=== PATIENT | female | born 1950 | race Caucasian/White ===

== ENCOUNTER 2017-09-20 15:53 | Emergency (ER) | payer MEDICARE, OTHER | END 2017-09-20 19:23 | disposition home or self-care (01) | LOC: FTE 15:53 | DX: R21 Rash and other nonspecific skin eruption (principal); I10 Essential (primary) hypertension; Z87.891 Personal history of nicotine dependence | CPT/HCPCS: 99283 ==

== ENCOUNTER 2018-01-14 17:48 | Emergency (ER) | payer MEDICARE, OTHER ==
[2018-01-14 20:42] LABS: ADD MAN DIFF? NO
[2018-01-14 20:45] LABS: BASOPHILS % 0.5 % (0.0-2.0); EOSINOPHILS # 0.3 10^3/ul (0.0-0.5); EOSINOPHILS % 4.5 % (0.0-7.0); HEMATOCRIT 46.1 % (37.0-47.0); HEMOGLOBIN 15.5 g/dl (12.0-16.0); LYMPHOCYTES # 1.9 10^3/ul (0.8-2.9); LYMPHOCYTES % 25.5 % (15.0-51.0); MEAN CORPUSCULAR HEMOGLOBIN 32.8 pg (29.0-33.0); MEAN CORPUSCULAR HGB CONC 33.6 g/dl (32.0-37.0); MEAN CORPUSCULAR VOLUME 97.5 fl (82.0-101.0); MEAN PLATELET VOLUME 13.7 fl (7.4-10.4); MONOCYTE # 0.7 10^3/ul (0.3-0.9); MONOCYTES % 9.5 % (0.0-11.0); NEUTROPHIL # 4.3 10^3/ul (1.6-7.5); NEUTROPHILS % 58.9 % (39.0-77.0); PLATELET COUNT 190 10^3/UL (140-415); RED BLOOD COUNT 4.73 10^6/ul (4.20-5.40)
[2018-01-14 20:45] LABS: WHITE BLOOD COUNT 7.4 10^3/ul (4.8-10.8)
[2018-01-14 20:51] LABS: OCCULT BLOOD STOOL NEGATIVE (NEGATIVE)
[2018-01-14] MEDS: LIDOCAINE 2% JELLY 30 ML TOP (21:34)
== END 2018-01-14 22:00 | disposition home or self-care (01) ==
LOC: FTE 17:48
DX: J20.9 Acute bronchitis, unspecified (principal); I10 Essential (primary) hypertension; Z87.891 Personal history of nicotine dependence
CPT/HCPCS: 71045; 82270; 85025; 99284-25